=== PATIENT | female | born 1965 | race Caucasian/White ===

== ENCOUNTER 2017-09-28 05:55 | Inpatient (IN) | payer MEDICARE, OTHER, MEDICAID ==
[2017-09-28] MEDS ORDERED: LACTATED RINGER'S 1,000 ML IV* (06:00)
[2017-09-28] MEDS ORDERED: ROCURONIUM 50 MG INJ ×2 (07:00→08:02)
[2017-09-28] MEDS ORDERED: CLINDAMYCIN 900 MG/50 ML D5W IVPB IVPB (07:00)
[2017-09-28 07:17] LABS: POTASSIUM 4.2 mmol/L (3.5-5.1)
[2017-09-28] MEDS ORDERED: CEFAZOLIN 1 GM INJ ×2 (07:35→08:02)
[2017-09-28] MEDS ORDERED: NEOSTIGMINE 3 MG/3 ML SYRINGE (08:02)
[2017-09-28] MEDS ORDERED: ONDANSETRON 4 MG INJ (08:02)
[2017-09-28] MEDS ORDERED: PROPOFOL 20 ML (08:02)
[2017-09-28] MEDS ORDERED: MIDAZOLAM 1 MG/ML 2 ML INJ (08:02)
[2017-09-28] MEDS ORDERED: GLYCOPYRROLATE 0.4 MG INJ (08:02)
[2017-09-28] MEDS ORDERED: DEXAMETHASONE 4 MG/ML 1 ML INJ (08:03)
[2017-09-28] MEDS ORDERED: HYDROmorphONE 2 MG/ML SYG (09:09)
[2017-09-28] MEDS ORDERED: POLYMYXIN/BACITRACIN 1L IRRIG (09:53)
[2017-09-28] MEDS: BUPIVACAINE 0.25%/EPI (SDV) 30 ML INJ ×2 (10:24→13:29)
[2017-09-28] MEDS: HEPARIN 1000 UNITS/ML 10 ML INJ (10:25)
[2017-09-28] MEDS: GELATIN SIZE 100 SPONGE (10:25)
[2017-09-28] MEDS: POLYMYXIN/BACITRACIN 1L IRRIG (10:27)
[2017-09-28] MEDS: THROMBIN 5000 UNIT VIAL (10:28)
[2017-09-28] MEDS ORDERED: EPHEDrine SULFATE 50 MG/5 ML SYG IV (10:30)
[2017-09-28] MEDS ORDERED: MIDAZOLAM 1 MG/ML 2 ML INJ IV (10:30)
[2017-09-28] MEDS ORDERED: TRIMETHOBENZAMIDE 100 MG/ML VIAL IM (10:30)
[2017-09-28] MEDS ORDERED: HYDROmorphONE 1 MG/5 ML IV SYRINGE IV ×2 (10:30)
[2017-09-28] MEDS ORDERED: ALBUTEROL 0.083% (NEB) 2.5 MG/3 ML AMP HHN (10:30)
[2017-09-28] MEDS ORDERED: DIPHENHYDRAMINE 50 MG INJ IV (10:30)
[2017-09-28] MEDS ORDERED: MEPERIDINE 25 MG INJ IV (10:30)
[2017-09-28] MEDS ORDERED: IPRATROPIUM (NEB) 0.5 MG/2.5 ML AMP HHN (10:30)
[2017-09-28] MEDS ORDERED: hydrALAzine 20 MG INJ IV (10:30)
[2017-09-28] MEDS ORDERED: LABETALOL HCL 20MG INJ IV (10:30)
[2017-09-28] MEDS ORDERED: SUGAMMADEX SODIUM 200 MG/2 ML VIAL IV (11:47)
[2017-09-28] MEDS ORDERED: NALOXONE (0.4 MG/ML) INJ IV (14:00)
[2017-09-28] MEDS ORDERED: NACL 0.9% 3 ML SYG IV (14:00)
[2017-09-28] MEDS ORDERED: PROCHLORPERAZINE 10 MG TAB PO (14:00)
[2017-09-28] MEDS ORDERED: ACETAMINOPHEN 325 MG TAB PO (14:00)
[2017-09-28] MEDS: HYDROmorphONE 0.2 MG/ML PCA IV (14:29)
[2017-09-28] MEDS: ONDANSETRON 4 MG INJ IV ×2 (14:33→21:10)
[2017-09-28] MEDS: HYDROmorphONE 1 MG/5 ML IV SYRINGE IV (14:53)
[2017-09-28] MEDS ORDERED: DEXTROSE 5%-0.9% NACL 1,000 ML IV (15:30)
[2017-09-28] MEDS ORDERED: GLUCOSE GEL 15 GRAM TUBE BUCCAL (16:00)
[2017-09-28] MEDS ORDERED: DEXTROSE 50% 50 ML SYRINGE IV ×2 (16:00)
[2017-09-28] MEDS ORDERED: GLUCOSE GEL 15 GRAM TUBE PO ×2 (16:00)
[2017-09-28] MEDS ORDERED: GLUCAGON 1 MG INJ IM (16:00)
[2017-09-28] MEDS: VANCOMYCIN 1 GM (PMX) 250 ML IVPB (18:39)
[2017-09-28] MEDS: CEFAZOLIN 2 GM/50 ML (PMX) 50 ML IVPB (18:44)
[2017-09-28] MEDS: CLINDAMYCIN 900 MG/D5W (PMX) 50 ML IVPB (18:45)
[2017-09-28] MEDS: SOD CHLORIDE 0.9% 1,000 ML IV (18:47)
[2017-09-28] MEDS: INSULIN ASPART [NOVOLOG] 3 ML PEN SC ×2 (18:55→21:16)
[2017-09-28] MEDS: METOPROLOL 25 MG TAB PO (21:09)
[2017-09-29] MEDS: ACCU-CHEK XX (02:34)
[2017-09-29] MEDS: VANCOMYCIN 1 GM (PMX) 250 ML IVPB (02:43)
[2017-09-29 04:59] LABS: ADD MAN DIFF? NO
[2017-09-29 05:06] LABS: BASOPHILS % 0.1 % (0.0-2.0); HEMATOCRIT 33.4 % (37.0-47.0); HEMOGLOBIN 11.2 g/dl (12.0-16.0); LYMPHOCYTES # 0.9 10^3/ul (0.8-2.9); LYMPHOCYTES % 7.2 % (15.0-51.0); MEAN CORPUSCULAR HEMOGLOBIN 31.6 pg (29.0-33.0); MEAN CORPUSCULAR HGB CONC 33.5 g/dl (32.0-37.0); MEAN CORPUSCULAR VOLUME 94.4 fl (82.0-101.0); MEAN PLATELET VOLUME 10.9 fl (7.4-10.4); NEUTROPHIL # 10.2 10^3/ul (1.6-7.5); NEUTROPHILS % 84.3 % (39.0-77.0); PLATELET COUNT 281 10^3/UL (140-415); RED BLOOD COUNT 3.54 10^6/ul (4.20-5.40); RED CELL DISTRIBUTION WIDTH 12.3 % (11.5-14.5)
[2017-09-29 05:06] LABS: WHITE BLOOD COUNT 12.1 10^3/ul (4.8-10.8)
[2017-09-29 05:35] LABS: PHOSPHORUS 4.1 mg/dl (2.5-4.9)
[2017-09-29 05:38] LABS: ANION GAP 13 (8-16); BLOOD UREA NITROGEN 14 mg/dl (7-20); CALCIUM 8.2 mg/dl (8.4-10.2); CARBON DIOXIDE 26 mmol/L (21-31); CHLORIDE 108 mmol/L (97-110); CREATININE 0.87 mg/dl (0.44-1.00); GLUCOSE 242 mg/dl (70-220); POTASSIUM 5.7 mmol/L (3.5-5.1); SODIUM 141 mmol/L (135-144)
[2017-09-29] MEDS: HYDROmorphONE 0.2 MG/ML PCA IV (07:10)
[2017-09-29] MEDS: METOPROLOL 25 MG TAB PO ×2 (08:47→20:49)
[2017-09-29] MEDS: INSULIN ASPART [NOVOLOG] 3 ML PEN SC ×5 (08:53→20:42)
[2017-09-29] MEDS: SOD CHLORIDE 0.9% 1,000 ML IV (12:06)
[2017-09-29] MEDS: NA POLYST SULFON 15 GM/60 ML BTL PO (12:17)
[2017-09-29] MEDS: HYDROCODONE/APAP (5/325) TAB PO ×4 (13:30→23:47)
[2017-09-29] MEDS: AMLODIPINE 2.5 MG TAB PO ×2 (14:26→21:00)
[2017-09-29] MEDS: HYDROmorphONE 0.5 MG/0.5 ML SYG IV ×2 (17:21→20:33)
[2017-09-29] MEDS: TIZANIDINE 4 MG TAB PO (17:26)
[2017-09-29 17:36] LABS: POTASSIUM 3.8 mmol/L (3.5-5.1)
[2017-09-29] MEDS: INSULIN GLARGINE [LANtus] 3 ML PEN SC (20:42)
[2017-09-29] MEDS: ATORVASTATIN 20 MG TAB PO (20:48)
[2017-09-30] MEDS: HYDROmorphONE 0.5 MG/0.5 ML SYG IV ×2 (00:18→05:54)
[2017-09-30] MEDS: TIZANIDINE 4 MG TAB PO ×3 (00:53→13:57)
[2017-09-30] MEDS: ACCU-CHEK XX ×2 (02:00)
[2017-09-30] MEDS: HYDROCODONE/APAP (5/325) TAB PO ×5 (04:35→20:58)
[2017-09-30] MEDS: SOD CHLORIDE 0.9% 1,000 ML IV (04:35)
[2017-09-30 04:57] LABS: ADD MAN DIFF? NO
[2017-09-30 04:59] LABS: BASOPHILS % 0.4 % (0.0-2.0); EOSINOPHILS % 0.5 % (0.0-7.0); HEMATOCRIT 28.1 % (37.0-47.0); HEMOGLOBIN 9.3 g/dl (12.0-16.0); LYMPHOCYTES # 1.7 10^3/ul (0.8-2.9); LYMPHOCYTES % 21.2 % (15.0-51.0); MEAN CORPUSCULAR HEMOGLOBIN 31.5 pg (29.0-33.0); MEAN CORPUSCULAR HGB CONC 33.1 g/dl (32.0-37.0); MEAN CORPUSCULAR VOLUME 95.3 fl (82.0-101.0); MEAN PLATELET VOLUME 11.1 fl (7.4-10.4); MONOCYTE # 0.6 10^3/ul (0.3-0.9); MONOCYTES % 7.3 % (0.0-11.0); NEUTROPHIL # 5.6 10^3/ul (1.6-7.5); NEUTROPHILS % 70.2 % (39.0-77.0); PLATELET COUNT 225 10^3/UL (140-415); RED BLOOD COUNT 2.95 10^6/ul (4.20-5.40); RED CELL DISTRIBUTION WIDTH 12.9 % (11.5-14.5)
[2017-09-30 05:25] LABS: ANION GAP 9 (8-16); BLOOD UREA NITROGEN 12 mg/dl (7-20); CALCIUM 7.6 mg/dl (8.4-10.2); CARBON DIOXIDE 28 mmol/L (21-31); CHLORIDE 108 mmol/L (97-110); CREATININE 0.77 mg/dl (0.44-1.00); GLUCOSE 221 mg/dl (70-220); MAGNESIUM 2.1 mg/dl (1.7-2.5); PHOSPHORUS 2.6 mg/dl (2.5-4.9); POTASSIUM 4.4 mmol/L (3.5-5.1); SODIUM 141 mmol/L (135-144)
[2017-09-30] MEDS: SENNA TAB PO ×2 (08:56→20:51)
[2017-09-30] MEDS: POLYETHYLENE GLYCOL 17 GM PACKET PO (08:57)
[2017-09-30] MEDS: AMLODIPINE 2.5 MG TAB PO ×2 (09:00→20:53)
[2017-09-30] MEDS: METOPROLOL 25 MG TAB PO ×2 (09:02→20:52)
[2017-09-30] MEDS: INSULIN ASPART [NOVOLOG] 3 ML PEN SC ×3 (09:11→17:28)
[2017-09-30 10:41] LABS: HEMOGLOBIN A1C 9.7 % (0-5.9)
[2017-09-30] MEDS: ATORVASTATIN 20 MG TAB PO ×2 (20:51→21:00)
[2017-09-30] MEDS: INSULIN GLARGINE [LANtus] 3 ML PEN SC (21:00)
[2017-10-01] MEDS: HYDROCODONE/APAP (5/325) TAB PO ×3 (01:10→12:13)
[2017-10-01] MEDS: ACCU-CHEK XX ×2 (02:00)
[2017-10-01 05:37] LABS: ADD MAN DIFF? NO
[2017-10-01 05:42] LABS: WHITE BLOOD COUNT 8.7 10^3/ul (4.8-10.8)
[2017-10-01 05:42] LABS: BASOPHILS % 0.5 % (0.0-2.0); EOSINOPHILS # 0.2 10^3/ul (0.0-0.5); EOSINOPHILS % 1.7 % (0.0-7.0); HEMATOCRIT 29.2 % (37.0-47.0); HEMOGLOBIN 9.8 g/dl (12.0-16.0); LYMPHOCYTES % 23.6 % (15.0-51.0); MEAN CORPUSCULAR HEMOGLOBIN 31.6 pg (29.0-33.0); MEAN CORPUSCULAR HGB CONC 33.6 g/dl (32.0-37.0); MEAN CORPUSCULAR VOLUME 94.2 fl (82.0-101.0); MEAN PLATELET VOLUME 11.5 fl (7.4-10.4); MONOCYTE # 0.7 10^3/ul (0.3-0.9); MONOCYTES % 8.3 % (0.0-11.0); NEUTROPHIL # 5.7 10^3/ul (1.6-7.5); NEUTROPHILS % 65.6 % (39.0-77.0); PLATELET COUNT 232 10^3/UL (140-415); RED CELL DISTRIBUTION WIDTH 12.8 % (11.5-14.5)
[2017-10-01 06:07] LABS: ANION GAP 14 (8-16); BLOOD UREA NITROGEN 11 mg/dl (7-20); CALCIUM 8.1 mg/dl (8.4-10.2); CARBON DIOXIDE 29 mmol/L (21-31); CHLORIDE 104 mmol/L (97-110); CREATININE 0.68 mg/dl (0.44-1.00); GLUCOSE 170 mg/dl (70-220); MAGNESIUM 2.2 mg/dl (1.7-2.5); PHOSPHORUS 2.9 mg/dl (2.5-4.9); POTASSIUM 3.6 mmol/L (3.5-5.1); SODIUM 143 mmol/L (135-144)
[2017-10-01] MEDS: POLYETHYLENE GLYCOL 17 GM PACKET PO (06:24)
[2017-10-01] MEDS: SENNA TAB PO (08:24)
[2017-10-01] MEDS: AMLODIPINE 2.5 MG TAB PO (08:25)
[2017-10-01] MEDS: METOPROLOL 25 MG TAB PO (08:26)
[2017-10-01] MEDS: DEXAMETHASONE 10 MG/ML 1 ML INJ IV (08:27)
[2017-10-01] MEDS: INSULIN ASPART [NOVOLOG] 3 ML PEN SC ×2 (08:28→12:26)
== END 2017-10-01 14:10 | disposition home or self-care (01) | DRG 455 ==
LOC: REC 05:55 → MS1 16:15
PROVIDERS: Orthopaedic Surgery
PROC: 0SG30A0 Fusion of Lumbosacral Joint with Interbody Fusion Device, Anterior Approach, Anterior Column, Open Approach (ICD-10-PCS; principal; 2017-09-28 08:00)
PROC: 0SG00J1 Fusion of Lumbar Vertebral Joint with Synthetic Substitute, Posterior Approach, Posterior Column, Open Approach (ICD-10-PCS; 2017-09-28 08:00)
PROC: 0SB40ZZ Excision of Lumbosacral Disc, Open Approach (ICD-10-PCS; 2017-09-28 08:00)
PROC: 4A11X4G Monitoring of Peripheral Nervous Electrical Activity, Intraoperative, External Approach (ICD-10-PCS; 2017-09-28 08:00)
DX: M43.17 Spondylolisthesis, lumbosacral region (principal); M54.16 Radiculopathy, lumbar region; M48.07 Spinal stenosis, lumbosacral region; E78.5 Hyperlipidemia, unspecified; I10 Essential (primary) hypertension; G35 Multiple sclerosis; I25.10 Atherosclerotic heart disease of native coronary artery without angina pectoris; E11.9 Type 2 diabetes mellitus without complications; E87.5 Hyperkalemia; Z79.4 Long term (current) use of insulin; Z95.1 Presence of aortocoronary bypass graft; Z95.0 Presence of cardiac pacemaker
CPT/HCPCS: 72100; 72110; 80048; 82962; 83036; 83735; 84100; 84132; 85025; 86850; 86900; 86901; 86920; 93971; 97116; 97161; 97530